=== PATIENT | male | born 1980 | race Caucasian/White ===

== ENCOUNTER 2018-09-09 14:01 | Emergency (ER) | payer BC ==
[~2018-09-09] VITALS: Ht 180.3 cm; Wt 117.9 kg
[~2018-09-09 14:01] MED LIST: ATEN25 PO; Cipro500 MG PO; Flagyl500 MG PO; HYDACE10B PO; HYDCHL25 PO; METO25ER PO
[2018-09-09] MEDS ORDERED: KETO10 PO (15:25)
[2018-09-09] MEDS ORDERED: LIDOCAINE1 EACH TOP (15:25)
[2018-09-09] MEDS ORDERED: PRED10 PO (15:41)
== END 2018-09-09 15:50 | disposition home or self-care (01) ==
LOC: ER 14:01
DX: M70.62 Trochanteric bursitis, left hip (principal); I10 Essential (primary) hypertension; F17.200 Nicotine dependence, unspecified, uncomplicated
CPT/HCPCS: 73502; 96372; 99283-25; J1885

== ENCOUNTER 2022-02-24 14:19 | Emergency (ER) | payer OTHER ==
[~2022-02-24] VITALS: Ht 177.8 cm; Wt 102.1 kg
[~2022-02-24 14:19] MED LIST changes: +KETO10 PO; +LIDOCAINE1 EACH TOP; +PRED10 PO
[2022-02-24] MEDS ORDERED: Neurontin 100100 MG PO (19:01)
[2022-02-24] MEDS ORDERED: METPRE4DP PO (19:01)
[2022-02-24] MEDS ORDERED: IBUP800 PO (19:01)
== END 2022-02-24 19:09 | disposition home or self-care (01) ==
LOC: ER 14:19
DX: M54.10 Radiculopathy, site unspecified (principal); I10 Essential (primary) hypertension; F17.200 Nicotine dependence, unspecified, uncomplicated; Z79.899 Other long term (current) drug therapy
CPT/HCPCS: 72131; 72193; 73502; A9270; J1170; J1885; J2405; Q9967

== ENCOUNTER 2023-04-21 11:03 | Emergency (ER) | payer OTHER ==
[~2023-04-21] VITALS: Ht 177.8 cm; Wt 98.0 kg
[~2023-04-21 11:03] MED LIST changes: +IBUP800 PO; +METPRE4DP PO; +Neurontin 100100 MG PO
[2023-04-21 11:15] VITALS: BP 157/100
[2023-04-21 11:54] LABS: BASOPHILS ABSOLUTE AUTO 0.06 K/mm3 (0.00-0.23); BASOPHILS PERCENT AUTO 1 % (0-2); EOSINOPHILS ABSOLUTE AUTO 0.15 K/mm3 (0.00-0.68); EOSINOPHILS PERCENT AUTO 2 % (0-6); Hematocrit 43.5 % (37.0-53.0); Hemoglobin 14.9 g/dL (13.5-17.5); IMMATURE GRAN ABSOLUTE AUTO 0.07 K/mm3 (0.00-0.10); IMMATURE GRAN PERCENT AUTO 1 % (0-1); LYMPHOCYTES ABSOLUTE AUTO 2.29 K/mm3 (0.84-5.20); LYMPHOCYTES PERCENT AUTO 24 % (21-46); MONOCYTES PERCENT AUTO 7 % (4-13); Mean Corpuscular HGB 30.7 pg (26.0-34.0); Mean Corpuscular HGB Conc 34.3 g/dL (31.5-36.5); Mean Corpuscular Volume 90 fL (80-100); Mean Platelet Volume 10.5 fL (9.1-12.4); NEUTROPHILS ABSOLUTE AUTO 6.26 K/mm3 (1.96-9.15); NEUTROPHILS PERCENT AUTO 66 % (41-73); Platelet Count 203 K/mm3 (150-400); RDW Coefficient Variation 12.4 % (11.7-14.2); RDW Standard Deviation 40.3 fL (35.1-46.3); Red Blood Cell Count 4.86 M/mm3 (4.30-5.90); White Blood Cell Count 9.53 K/mm3 (4.00-11.30)
[2023-04-21 12:15] LABS: Albumin, Blood 4.1 g/dL (3.4-5.0); Albumin/Globulin Ratio 1.2 (0.8-1.8); Bilirubin, Total 0.6 mg/dL (0.1-1.0); Bun/Creatinine Ratio 19.6 (12.0-20.0); Calcium, Blood 9.8 mg/dL (8.5-10.1); Creatinine, Blood 1.07 mg/dL (0.60-1.20); Globulin, Blood 3.5 g/dL (2.2-4.0); Magnesium, Blood 2.3 mg/dL (1.6-2.4); Phosphorus, Blood 3.1 mg/dL (2.5-4.9); Potassium, Blood 3.9 mmol/L (3.5-5.5); Total Protein, Blood 7.6 g/dL (6.4-8.2)
[2023-04-21] MEDS ORDERED: NS 1,000 ML IV SCH (14:30)
== END 2023-04-21 16:14 | disposition home or self-care (01) ==
LOC: ER 11:03
PROVIDERS: Physician Assistant
DX: R55 Syncope and collapse (principal); Z79.899 Other long term (current) drug therapy; Z79.52 Long term (current) use of systemic steroids; I10 Essential (primary) hypertension; F17.200 Nicotine dependence, unspecified, uncomplicated
CPT/HCPCS: 70450; 71046; 80053; 83735; 84100; 84484; 85025; J7030

== ENCOUNTER 2024-04-05 07:36 | Emergency (ER) | payer OTHER ==
[~2024-04-05] VITALS: Ht 177.8 cm; Wt 120.2 kg
[2024-04-05] MEDS ORDERED: CYMBALTA30 M2 PO (07:56)
[2024-04-05] MEDS ORDERED: LOSA50 PO (07:56)
[2024-04-05] MEDS ORDERED: Cyclobenzaprine5 MG PO (07:56)
[2024-04-05] MEDS ORDERED: DICL75ER PO (07:56)
[2024-04-05] MEDS ORDERED: BUPROPION XL150 M1 PO (07:56)
[2024-04-05] MEDS ORDERED: DEPO-TESTO200 MG/18 (07:57)
[2024-04-05] MEDS ORDERED: HYDROCODONE-AC1 EA19 PO (07:57)
[2024-04-05] MEDS ORDERED: NEURONTIN300 MG PO (07:57)
[2024-04-05] MEDS ORDERED: CHLO25B PO (07:57)
[2024-04-05] MEDS ORDERED: METOPROLOL SUCC25 MG PO (07:57)
[2024-04-05] MEDS ORDERED: Ketorolac Tromethamine 15mg Vial IM ONE (08:40)
[2024-04-05 10:15] VITALS: BP 138/86
== END 2024-04-05 10:19 | disposition home or self-care (01) ==
LOC: ER 07:36
DX: M15.4 Erosive (osteo)arthritis (principal); I10 Essential (primary) hypertension; Z79.899 Other long term (current) drug therapy
CPT/HCPCS: 73502; 96372; 99283-25; J1885

== ENCOUNTER 2025-01-28 14:36 | Inpatient (IN) | payer OTHER ==
[~2025-01-28] VITALS: Ht 177.8 cm; Wt 111.1 kg
[~2025-01-28 14:36] MED LIST changes: -GEMF600 PO; -INSULIN GL100 UNIT/1
[2025-01-28] MEDS ORDERED: Ondansetron HCl 2 MG / ML 2ML Vial IV ONE ×2 (15:05→19:35)
[2025-01-28] MEDS ORDERED: Morphine Sulfate 4 MG/1 ML Injection IV ONE ×3 (15:05→19:45)
[2025-01-28 16:01] LABS: Anion Gap 16.0 mmol/L (3-11); Aspartate Aminotrans (AST/SGOT 15.0 U/L (12-37); Blood Urea Nitrogen 15.0 mg/dL (8-24); CO2, Blood 20.0 mmol/L (21-32); Chloride, Blood 91.0 mmol/L (98-108); Creatinine, Blood 0.25 mg/dL (0.60-1.20); Glucose, Blood 387.0 mg/dL (70-99); Magnesium, Blood 2.4 mg/dL (1.6-2.4); Potassium, Blood 4.9 mmol/L (3.5-5.5); Sodium, Blood 122.0 mmol/L (136-145)
[2025-01-28 16:02] LABS: Alanine Aminotransfer (ALT/SGP 39.0 U/L (12-78); Albumin, Blood 4.1 g/dL (3.4-5.0); Albumin/Globulin Ratio 1.1 (0.8-1.8); Globulin, Blood 3.8 g/dL (2.2-4.0); Total Protein, Blood 7.9 g/dL (6.4-8.2)
[2025-01-28 16:03] LABS: Bilirubin, Total 0.8 mg/dL (0.1-1.0); Calcium, Blood 10.2 mg/dL (8.5-10.1)
[2025-01-28 16:17] LABS: BASOPHILS ABSOLUTE AUTO 0.09 K/mm3 (0.00-0.23); BASOPHILS PERCENT AUTO 1 % (0-2); EOSINOPHILS ABSOLUTE AUTO 0.05 K/mm3 (0.00-0.68); EOSINOPHILS PERCENT AUTO 0 % (0-6); IMMATURE GRAN ABSOLUTE AUTO 0.19 K/mm3 (0.00-0.10); IMMATURE GRAN PERCENT AUTO 1 % (0-1); LYMPHOCYTES ABSOLUTE AUTO 1.39 K/mm3 (0.84-5.20); LYMPHOCYTES PERCENT AUTO 8 % (21-46); MONOCYTES ABSOLUTE AUTO 1.18 K/mm3 (0.16-1.47); MONOCYTES PERCENT AUTO 7 % (4-13); NEUTROPHILS ABSOLUTE AUTO 14.47 K/mm3 (1.96-9.15); NEUTROPHILS PERCENT AUTO 83 % (41-73); NRBC ABSOLUTE 0.00 K/mm3 (0.00-0.02); NRBC Auto 0.0 /100 WBC (0.0-0.2); Platelet Count 273 K/mm3 (150-400); RDW Coefficient Variation 13.5 % (11.7-14.2); RDW Standard Deviation 39.3 fL (35.1-46.3)
[2025-01-28 17:07] LABS: Hematocrit 41.4 % (37.0-53.0); Hemoglobin 14.6 g/dL (13.5-17.5)
[2025-01-28 17:08] LABS: Mean Corpuscular Volume 84 fL (80-100)
[2025-01-28 17:09] LABS: Mean Corpuscular HGB Conc 35.3 g/dL (31.5-36.5)
[2025-01-28] MEDS ORDERED: NS 1,000 ML IV SCH (19:45)
[2025-01-28] MEDS ORDERED: Metoclopramide HCl 5MG / ML 2ML Vial IV PRN (21:05)
[2025-01-28] MEDS ORDERED: Ondansetron HCl 2 MG / ML 2ML Vial IV PRN (21:05)
[2025-01-28] MEDS ORDERED: Morphine Sulfate 4 MG/1 ML Injection IV PRN (21:10)
[2025-01-28] MEDS ORDERED: FLU VACC TS2025-26(6MOS UP)/PF 45 MCG/0.5 ML SYRINGE IM SCH (21:10)
[2025-01-28 21:46] LABS: Triglycerides 747 mg/dL (30-160)
[2025-01-28 21:56] LABS: Anion Gap 14.0 mmol/L (3-11); Blood Urea Nitrogen 12.0 mg/dL (8-24); CO2, Blood 22.0 mmol/L (21-32); Calcium, Blood 9.1 mg/dL (8.5-10.1); Chloride, Blood 96.0 mmol/L (98-108); Creatinine, Blood 0.54 mg/dL (0.60-1.20); Glucose, Blood 319.0 mg/dL (70-99); Potassium, Blood 3.9 mmol/L (3.5-5.5); Sodium, Blood 128.0 mmol/L (136-145)
[2025-01-28] MEDS ORDERED: Insulin Glargine-Yfgn 100 Unit/mL 3 ML SYR SC SCH (22:00)
[2025-01-28 23:38] VITALS: BP 143/89
--- NOTE | 2025-01-29 01:24 | NUR ---
Admission Note: Received from ED @ 0030 AOx4 speech clear & able to make all needs known; states mild abdom discomfort, relieved by MSO4 4 mg admin shortly @ ED blood glucose = 334 Glargine 25 U admin per standing order; Dr. Ferrer made aware of BG level, MD ordered to follow standard AC/HS sliding scale, although accuchecks are ordered q4H 2 U of Humalog admin per sliding scale. LR @ 200 srtarted & infusing well via LAC. Pt ambulates steadily and independently. He is stable, in good spirits and is resting comfortably @ this time.
[2025-01-29 04:35] VITALS: BP 148/82
[2025-01-29 07:10] VITALS: BP 148/85
[2025-01-29 07:48] LABS: Anion Gap 18.0 mmol/L (3-11); Blood Urea Nitrogen 12.0 mg/dL (8-24); CO2, Blood 16.0 mmol/L (21-32); Calcium, Blood 9.2 mg/dL (8.5-10.1); Chloride, Blood 103.0 mmol/L (98-108); Creatinine, Blood 0.7 mg/dL (0.60-1.20); Glucose, Blood 296.0 mg/dL (70-99); Potassium, Blood 4.3 mmol/L (3.5-5.5); Sodium, Blood 133.0 mmol/L (136-145)
[2025-01-29] MEDS ORDERED: INSULIN GL100 UNIT/1 (08:35)
[2025-01-29] MEDS ORDERED: Enoxaparin 40 MG/0.4 ML SYR SC SCH (09:00)
[2025-01-29 11:16] VITALS: BP 142/83
[2025-01-29] MEDS ORDERED: Insulin Glargine-Yfgn 100 Unit/mL 3 ML SYR SC ONE (13:00)
--- NOTE | 2025-01-29 17:04 | NUR ---
SHIFT SUMMARY: PATIENT A/OX4, PLEASANT AND COOPERATIVE c CARE. PATIENT MEDICATED FOR MID ABDOMINAL PAIN PER EMAR c GOOD EFFECT. PATIENT IS NPO, BUT CAN HAVE ICE CHIPS/SIPS OF H2O PER ORDER. PATIENT DENIES N/V, CP/PRESSURE, SOB AND DIZZINESS. PATIENT ON TELE, ST HR IN 110'S BPM. PATIENT BLOOD SUGAR HAS BEEN IN MID TO HIGH 200'S RANGES THIS SHIFT, MEDICATED c INSULIN PER ORDER. DR. JACOBS IS AWARE AND MADE SOME CHANGES c INSULIN (SEE EMAR). PATIENT IS CONTINENT OF BLADDER, AMBULATES TO BATHROOM INDEPENDENTLY. PATIENT HAS PIV TO R FOREARM INFUSING LR AT 200 MLS/HR. PATIENT HAS HAD NO COMPLAINTS OR DENIES NEW CONCERN THIS SHIFT. VITAL SIGNS REVIEWED. BED IN LOWEST POSITION. CALL LIGHT IN REACH.
[2025-01-29] MEDS ORDERED: Insulin Human Lispro 100 Units/ML 3ML Syringe SC SCH ×2 (18:00)
[2025-01-29 19:06] LABS: BASOPHILS ABSOLUTE AUTO 0.05 K/mm3 (0.00-0.23); BASOPHILS PERCENT AUTO 1 % (0-2); EOSINOPHILS ABSOLUTE AUTO 0.01 K/mm3 (0.00-0.68); EOSINOPHILS PERCENT AUTO 0 % (0-6); Hematocrit 40.7 % (37.0-53.0); Hemoglobin 14.2 g/dL (13.5-17.5); IMMATURE GRAN ABSOLUTE AUTO 0.04 K/mm3 (0.00-0.10); IMMATURE GRAN PERCENT AUTO 0 % (0-1); LYMPHOCYTES ABSOLUTE AUTO 1.02 K/mm3 (0.84-5.20); LYMPHOCYTES PERCENT AUTO 11 % (21-46); MONOCYTES ABSOLUTE AUTO 0.73 K/mm3 (0.16-1.47); MONOCYTES PERCENT AUTO 8 % (4-13); Mean Corpuscular HGB Conc 34.9 g/dL (31.5-36.5); Mean Corpuscular Volume 84 fL (80-100); NEUTROPHILS ABSOLUTE AUTO 7.52 K/mm3 (1.96-9.15); NEUTROPHILS PERCENT AUTO 80 % (41-73); NRBC ABSOLUTE 0.00 K/mm3 (0.00-0.02); NRBC Auto 0.0 /100 WBC (0.0-0.2); Platelet Count 169 K/mm3 (150-400); RDW Coefficient Variation 13.9 % (11.7-14.2); RDW Standard Deviation 41.9 fL (35.1-46.3)
[2025-01-29 19:24] LABS: Magnesium, Blood 1.9 mg/dL (1.6-2.4)
[2025-01-29 19:47] VITALS: BP 147/73
[2025-01-29 19:48] LABS: Alanine Aminotransfer (ALT/SGP 33.0 U/L (12-78); Albumin, Blood 2.7 g/dL (3.4-5.0); Albumin/Globulin Ratio 0.7 (0.8-1.8); Anion Gap 13.0 mmol/L (3-11); Aspartate Aminotrans (AST/SGOT 35.0 U/L (12-37); Bilirubin, Total 1.1 mg/dL (0.1-1.0); Blood Urea Nitrogen 12.0 mg/dL (8-24); CO2, Blood 21.0 mmol/L (21-32); Calcium, Blood 8.6 mg/dL (8.5-10.1); Chloride, Blood 100.0 mmol/L (98-108); Creatinine, Blood 0.93 mg/dL (0.60-1.20); Globulin, Blood 3.9 g/dL (2.2-4.0); Glucose, Blood 309.0 mg/dL (70-99); Phosphorus, Blood 1.2 mg/dL (2.5-4.9); Potassium, Blood 3.9 mmol/L (3.5-5.5); Sodium, Blood 130.0 mmol/L (136-145); Total Protein, Blood 6.6 g/dL (6.4-8.2)
[2025-01-29] MEDS ORDERED: Insulin Glargine-Yfgn 100 Unit/mL 3 ML SYR SC SCH (21:00)
[2025-01-30 00:25] VITALS: BP 126/68
[2025-01-30 04:19] VITALS: BP 132/69
--- NOTE | 2025-01-30 04:53 | NUR ---
Shift Summary: Pt. AOx4 resp clear & non-labored all VS WNL, c/o intermittent abdominal pains relieved by MSO4 4 mg administered PRN as ordered, blood sugar levels remain in the higher side, pt. medicated with Humalog as per sliding scale protocol; no acute S/S distress in r/t high BG levels noted. IVF infusing well via RFA, pt. ambulating independently to bathroom, continent of (B) B&B. Pt. is stable & resting with call cabrales in reach.
[2025-01-30] MEDS ORDERED: OxyCODONE 10/Acetamin 325 TABLET PO PRN (05:15)
[2025-01-30 07:19] VITALS: BP 120/63
[2025-01-30] MEDS ORDERED: Insulin Glargine-Yfgn 100 Unit/mL 3 ML SYR SC SCH (09:00)
[2025-01-30 10:39] LABS: BASOPHILS ABSOLUTE AUTO 0.04 K/mm3 (0.00-0.23); BASOPHILS PERCENT AUTO 0 % (0-2); EOSINOPHILS ABSOLUTE AUTO 0.02 K/mm3 (0.00-0.68); EOSINOPHILS PERCENT AUTO 0 % (0-6); Hematocrit 36.0 % (37.0-53.0); Hemoglobin 12.1 g/dL (13.5-17.5); IMMATURE GRAN ABSOLUTE AUTO 0.05 K/mm3 (0.00-0.10); IMMATURE GRAN PERCENT AUTO 1 % (0-1); LYMPHOCYTES ABSOLUTE AUTO 0.99 K/mm3 (0.84-5.20); LYMPHOCYTES PERCENT AUTO 11 % (21-46); MONOCYTES ABSOLUTE AUTO 0.93 K/mm3 (0.16-1.47); MONOCYTES PERCENT AUTO 10 % (4-13); Mean Corpuscular HGB Conc 33.6 g/dL (31.5-36.5); Mean Corpuscular Volume 85 fL (80-100); NEUTROPHILS ABSOLUTE AUTO 7.35 K/mm3 (1.96-9.15); NEUTROPHILS PERCENT AUTO 78 % (41-73); NRBC ABSOLUTE 0.00 K/mm3 (0.00-0.02); NRBC Auto 0.0 /100 WBC (0.0-0.2); Platelet Count 162 K/mm3 (150-400); RDW Coefficient Variation 13.7 % (11.7-14.2); RDW Standard Deviation 42.4 fL (35.1-46.3)
[2025-01-30 11:05] LABS: Alanine Aminotransfer (ALT/SGP 21 U/L (12-78); Albumin, Blood 2.3 g/dL (3.4-5.0); Albumin/Globulin Ratio 0.6 (0.8-1.8); Anion Gap 9 mmol/L (3-11); Aspartate Aminotrans (AST/SGOT 17 U/L (12-37); Bilirubin, Total 0.7 mg/dL (0.1-1.0); Blood Urea Nitrogen 23 mg/dL (8-24); C-REACTIVE PROTEIN, EXT RANGE >19.000 mg/dL (0.000-0.300); CO2, Blood 23 mmol/L (21-32); Calcium, Blood 8.9 mg/dL (8.5-10.1); Chloride, Blood 102 mmol/L (98-108); Creatinine, Blood 2.06 mg/dL (0.60-1.20); Globulin, Blood 3.7 g/dL (2.2-4.0); Glucose, Blood 286 mg/dL (70-99); Magnesium, Blood 1.9 mg/dL (1.6-2.4); Phosphorus, Blood 1.5 mg/dL (2.5-4.9); Potassium, Blood 3.3 mmol/L (3.5-5.5); Sodium, Blood 131 mmol/L (136-145); Total Protein, Blood 6.0 g/dL (6.4-8.2)
[2025-01-30 11:42] VITALS: BP 131/75
[2025-01-30] MEDS ORDERED: NS 1,000 ML IV SCH (12:35)
[2025-01-30] MEDS ORDERED: Potassium Phosphate Dibasic 10 MM in Dextrose 5% 250 ML IV STA (12:40)
[2025-01-30] MEDS ORDERED: Sodium Phosphate 10 MM in Dextrose 5% 250 ML IV ONE (12:50)
--- NOTE | 2025-01-30 12:50 | NUR ---
NEPHROLOGY CONSULT NOTE: CALL DR PATTON FOR CONSULT RECEIVED TELEPHONE ORDER ORDERS RECEIVED FOR RENAL PANEL, MAGNESIUM LAB DRAW AND SODIUM PHOSPHATE IV NOW.
[2025-01-30] MEDS ORDERED: Darbepoetin (Pharmacy Consult) SC SCH (13:00)
[2025-01-30 13:36] LABS: Source, Urine Clean Catch
[2025-01-30 13:42] LABS: Bilirubin, Urine Neg (Neg); Color, Urine Yellow (P-Yellow); Glucose Qualitative, Urine 4+ (Neg); Ketones, Urine 2+ (Neg); Leukocyte Esterase, Urine Neg (Neg); Protein, Urine 3+ (Neg); Specific Gravity, Urine 1.020 (1.003-1.022); Urobilinogen, Urine NORM (Normal)
[2025-01-30 14:02] LABS: White Blood Cells, Urine 0-2 /hpf (0-5)
[2025-01-30 14:35] LABS: Albumin, Blood 2.5 g/dL (3.4-5.0); Anion Gap 11 mmol/L (3-11); Blood Urea Nitrogen 25 mg/dL (8-24); CO2, Blood 21 mmol/L (21-32); Calcium, Blood 8.7 mg/dL (8.5-10.1); Chloride, Blood 102 mmol/L (98-108); Creatinine, Blood 2.22 mg/dL (0.60-1.20); Glucose, Blood 264 mg/dL (70-99); Magnesium, Blood 1.9 mg/dL (1.6-2.4); Phosphorus, Blood 1.5 mg/dL (2.5-4.9); Potassium, Blood 3.3 mmol/L (3.5-5.5)
[2025-01-30 14:49] LABS: EOS, Urine 0.0 % (0.0-1.0); Eosinophils-Raw #,Urine 0; White Blood Cells Urine 0-2 /hpf (0-5)
[2025-01-30 15:14] VITALS: BP 142/82
[2025-01-30 15:58] LABS: Sodium, Blood 131 mmol/L (136-145)
[2025-01-30] MEDS ORDERED: Potassium Phosphate Dibasic 20 MM in Dextrose 5% 500 ML IV ONE (16:00)
[2025-01-30] MEDS ORDERED: Insulin Human Lispro 100 Units/ML 3ML Syringe SC SCH (16:30)
--- NOTE | 2025-01-30 16:30 | NUR ---
PT ALERT AND ORIENTED X4, INDEPENDENT IN ROOM, C/O SLIGHT ABDOMINAL PAIN IN AM BUT DENIED NAUSEA. ABDOMINAL PAIN TOLERABLE AND PO PAIN MEDS PRN, ADVANCED TO CLEAR LIQUID DIET-TOLERATING WELL. CONTINUOUS IVF INFUSING. PLAN TO KEEP PT ON CLEARS TODAY AND MAYBE TOMMOROW WELL. CALL LIGHT IN REACH, PURPOSEFUL HOURLY ROUNDING.
[2025-01-30 16:57] LABS: Phosphorus, Blood 2.2 mg/dL (2.5-4.9); Potassium, Blood 3.4 mmol/L (3.5-5.5); Sodium, Blood 130.0 mmol/L (136-145)
[2025-01-30] MEDS ORDERED: Potassium Phosphate Dibasic 10 MM in Dextrose 5% 250 ML IV ONE (17:15)
--- NOTE | 2025-01-30 17:16 | NUR ---
NEPHROLOGY NOTIFICATION NOTE: NOTIFIED DR. ABDI batista LAB RESULT FOR SODIUM, POTASSIUM AND PHOSPHOROUS, RECEIVED TO TO GIVE POTASSIUM PHOS 10 MM0 IV NOW.
[2025-01-30 19:20] VITALS: BP 115/81
[2025-01-31] VITALS (7 sets, daily range): BP systolic 114–134; BP diastolic 76–89
--- NOTE | 2025-01-31 04:18 | NUR ---
SHIFT SUMMARY PATIENT HAD NO ACUTE CHANGES. DENIES CHEST PAIN, SOB, AND N/V. VSS/AFEBRILE. PIV INTACT. NS INFUSING @ 125 mL/HR. TELE MONITOR ST 104. CBG 309. REPORTED ABDOMEN PAIN AND OXYCODONE 10/325 MG GIVEN PER EMAR. 24 HOUR URINE COLLECTION STARTED 01/30/25 @ 23:00. SLEPT ON/OFF. ICE PACK PROVIDED. CALL LIGHT IN REACH. BED IN LOWEST POSITION. WILL CONTINUE TO MONITOR UNTIL DAY SHIFT NURSE ASSUMES CARE.
[2025-01-31 06:16] LABS: BASOPHILS ABSOLUTE AUTO 0.04 K/mm3 (0.00-0.23); BASOPHILS PERCENT AUTO 0 % (0-2); EOSINOPHILS ABSOLUTE AUTO 0.11 K/mm3 (0.00-0.68); EOSINOPHILS PERCENT AUTO 1 % (0-6); Hematocrit 37.0 % (37.0-53.0); Hemoglobin 12.0 g/dL (13.5-17.5); IMMATURE GRAN ABSOLUTE AUTO 0.06 K/mm3 (0.00-0.10); IMMATURE GRAN PERCENT AUTO 1 % (0-1); LYMPHOCYTES ABSOLUTE AUTO 1.25 K/mm3 (0.84-5.20); LYMPHOCYTES PERCENT AUTO 13 % (21-46); MONOCYTES ABSOLUTE AUTO 0.95 K/mm3 (0.16-1.47); MONOCYTES PERCENT AUTO 10 % (4-13); Mean Corpuscular HGB Conc 32.4 g/dL (31.5-36.5); Mean Corpuscular Volume 87 fL (80-100); NEUTROPHILS ABSOLUTE AUTO 7.23 K/mm3 (1.96-9.15); NEUTROPHILS PERCENT AUTO 75 % (41-73); NRBC ABSOLUTE 0.00 K/mm3 (0.00-0.02); NRBC Auto 0.0 /100 WBC (0.0-0.2); Platelet Count 193 K/mm3 (150-400); RDW Coefficient Variation 13.9 % (11.7-14.2); RDW Standard Deviation 44.2 fL (35.1-46.3)
[2025-01-31 06:56] LABS: Magnesium, Blood 2.0 mg/dL (1.6-2.4)
[2025-01-31 06:59] LABS: Alanine Aminotransfer (ALT/SGP 23 U/L (12-78); Albumin, Blood 2.6 g/dL (3.4-5.0); Albumin/Globulin Ratio 0.6 (0.8-1.8); Anion Gap 9 mmol/L (3-11); Aspartate Aminotrans (AST/SGOT 21 U/L (12-37); Bilirubin, Total 0.6 mg/dL (0.1-1.0); Blood Urea Nitrogen 26 mg/dL (8-24); C-REACTIVE PROTEIN, EXT RANGE >19.000 mg/dL (0.000-0.300); CO2, Blood 24 mmol/L (21-32); Calcium, Blood 9.1 mg/dL (8.5-10.1); Chloride, Blood 100 mmol/L (98-108); Creatinine, Blood 2.56 mg/dL (0.60-1.20); Globulin, Blood 4.2 g/dL (2.2-4.0); Glucose, Blood 187 mg/dL (70-99); Phosphorus, Blood 2.3 mg/dL (2.5-4.9); Potassium, Blood 2.8 mmol/L (3.5-5.5); Sodium, Blood 130 mmol/L (136-145); Total Protein, Blood 6.8 g/dL (6.4-8.2)
[2025-01-31] MEDS ORDERED: Potassium Chl 20MEQ/Water100ML 100 ML IV STA (07:17)
[2025-01-31] MEDS ORDERED: NS 1,000 ML IV SCH (07:25)
[2025-01-31] MEDS ORDERED: Potassium Phosphate Dibasic 20 MM in Dextrose 5% 500 ML IV SCH (09:30)
[2025-01-31 12:25] LABS: Magnesium, Blood 2.0 mg/dL (1.6-2.4); Potassium, Blood 3.3 mmol/L (3.5-5.5)
[2025-01-31] MEDS ORDERED: Potassium Chl 20MEQ/Water100ML 100 ML IV ONE (13:30)
--- NOTE | 2025-01-31 15:43 | NUR ---
LATE ENTRY FOR DIABETIC EDUCATION WAS INSTRUCTED ON USE OF CORRECTION SCALE PRIOR TO MEALS, WHAT KINDS OF INSULIN USED FOR CORRECTION SCALE AND WHEN TO GIVE PRIOR TO EATING MEAL. PT DEMONSTRATED COMPETANCY IN DIALING UP INSULIN AND INJECTION HIMSELF. REQUIRED EDUCATION IN PRIMING THE NEEDLE ONCE ITS PLACED, WHICH PT REPORTS HE WASN'T AWARE OF DURING THE TIME HE HAD BEEN GIVING HIMSELF LONG ACTING INSULIN AT HOME. NOTIFIED PRIMARY NURSE AFTER RETURN FROM BREAK.
--- NOTE | 2025-01-31 17:54 | NUR ---
PT ALERT AND ORIENTED X4, INDEPENDENT IN ROOM, IVF INFUSING-NS AT 75CC/HR, BLOOD GLUCOSE IN 200'S, 24 HR URINE COLLECTION ONGOING. TOLERATING CLEAR DIET- ABDOMINAL PAIN MANAGED WITH PO AND IV PRN, ZOFRAN ONE DOSE GIVEN TODAY. PLAN FOR DIET ADVANCEMENT TOMMOROW TO FULL LIQUID DIET, PT EDUCATION PROVIDED ON INSULIN ADMINISTRATION-PT DEMOSTRATED INSULIN PEN USE AND ADMINISTRATION. CALL LIGHT IN REACH.
[2025-01-31] MEDS ORDERED: Insulin Glargine-Yfgn 100 Unit/mL 3 ML SYR SC SCH (21:00)
[2025-01-31 23:31] LABS: Protein, Urine Quantitative 106.2 mg/dL (0.0-11.9)
[2025-02-01 03:29] VITALS: BP 145/87
[2025-02-01 05:36] LABS: BASOPHILS ABSOLUTE AUTO 0.03 K/mm3 (0.00-0.23); BASOPHILS PERCENT AUTO 0 % (0-2); EOSINOPHILS ABSOLUTE AUTO 0.20 K/mm3 (0.00-0.68); EOSINOPHILS PERCENT AUTO 2 % (0-6); Hematocrit 33.2 % (37.0-53.0); Hemoglobin 10.9 g/dL (13.5-17.5); IMMATURE GRAN ABSOLUTE AUTO 0.08 K/mm3 (0.00-0.10); IMMATURE GRAN PERCENT AUTO 1 % (0-1); LYMPHOCYTES ABSOLUTE AUTO 1.43 K/mm3 (0.84-5.20); LYMPHOCYTES PERCENT AUTO 15 % (21-46); MONOCYTES ABSOLUTE AUTO 0.89 K/mm3 (0.16-1.47); MONOCYTES PERCENT AUTO 10 % (4-13); Mean Corpuscular HGB Conc 32.8 g/dL (31.5-36.5); Mean Corpuscular Volume 88 fL (80-100); NEUTROPHILS ABSOLUTE AUTO 6.78 K/mm3 (1.96-9.15); NEUTROPHILS PERCENT AUTO 72 % (41-73); NRBC ABSOLUTE 0.00 K/mm3 (0.00-0.02); NRBC Auto 0.0 /100 WBC (0.0-0.2); Platelet Count 193 K/mm3 (150-400); RDW Coefficient Variation 13.9 % (11.7-14.2); RDW Standard Deviation 44.6 fL (35.1-46.3)
--- NOTE | 2025-02-01 06:16 | NUR ---
SHIFT SUMMARY PT A&OX4 AND ANSWERS QUESTIONS APPROPRIATELY. PT RECEIVING IV POTASSIUM AT BEGINNING OF SHIFT. PT RECEIVED SCHEDULED AND PRN MEDICATIONS WITH NO ADVERSE EFFECTS. VSS, NO COMPLAINTS OF CP/PRESSURE OR SOB. PT SPENT MOST OF THE SHIFT IN BEDD WITH EYES CLOSED AND RESPIRATIONS EVEN AND UNLABORED. NO ACUTE EVENTS AT THIS TIME. PT LEFT IN A POSITION OF SAFETY WITH FALL PRECAUTIONS IN PLACE AND CALL LIGHT IN REACH.
[2025-02-01 06:42] LABS: Alanine Aminotransfer (ALT/SGP 25.0 U/L (12-78); Albumin, Blood 2.4 g/dL (3.4-5.0); Albumin/Globulin Ratio 0.6 (0.8-1.8); Anion Gap 9.0 mmol/L (3-11); Aspartate Aminotrans (AST/SGOT 25.0 U/L (12-37); Bilirubin, Total 0.5 mg/dL (0.1-1.0); Blood Urea Nitrogen 26.0 mg/dL (8-24); CO2, Blood 23.0 mmol/L (21-32); Calcium, Blood 9.3 mg/dL (8.5-10.1); Chloride, Blood 105.0 mmol/L (98-108); Creatinine, Blood 2.62 mg/dL (0.60-1.20); Globulin, Blood 3.7 g/dL (2.2-4.0); Glucose, Blood 135.0 mg/dL (70-99); Magnesium, Blood 2.1 mg/dL (1.6-2.4); Phosphorus, Blood 3.3 mg/dL (2.5-4.9); Potassium, Blood 3.5 mmol/L (3.5-5.5); Sodium, Blood 133.0 mmol/L (136-145); Total Protein, Blood 6.1 g/dL (6.4-8.2)
[2025-02-01] MEDS ORDERED: NS 1,000 ML IV SCH (07:00)
[2025-02-01 07:30] VITALS: BP 126/78
[2025-02-01 11:08] VITALS: BP 153/73
[2025-02-01 15:04] VITALS: BP 123/78
--- NOTE | 2025-02-01 16:25 | NUR ---
SHIFT SUMMARY PT DIET ADVANCED TO FULL LIQUID. TOLERATING WELL SO FAR. DR. PATTON FOLLOWING. MEDICATED PER EMAR ONCE THIS SHIFT SO FAR. NO IV PAIN MEDS NEEDED SO FAR THIS SHIFT. TELE IN PLACE. RUNNING NSR T/O SHIFT. NO OTHER ACUTE CHANGES IN ASSESSMENT AT THIS TIME. VS REVIEWED. CALL LIGHT IN REACH. DENIES OTHER NEEDS AT THIS TIME. PT REPORTED HE HAD TWO BMS YESTERDAY AND FORGOT TO TELL STAFF.
[2025-02-01 20:11] VITALS: BP 152/90
[2025-02-02 00:10] VITALS: BP 139/81
[2025-02-02 04:03] VITALS: BP 137/80
[2025-02-02 05:58] LABS: BASOPHILS ABSOLUTE AUTO 0.04 K/mm3 (0.00-0.23); BASOPHILS PERCENT AUTO 1 % (0-2); EOSINOPHILS ABSOLUTE AUTO 0.17 K/mm3 (0.00-0.68); EOSINOPHILS PERCENT AUTO 2 % (0-6); Hematocrit 33.3 % (37.0-53.0); Hemoglobin 10.8 g/dL (13.5-17.5); IMMATURE GRAN ABSOLUTE AUTO 0.12 K/mm3 (0.00-0.10); IMMATURE GRAN PERCENT AUTO 1 % (0-1); LYMPHOCYTES ABSOLUTE AUTO 1.05 K/mm3 (0.84-5.20); LYMPHOCYTES PERCENT AUTO 12 % (21-46); MONOCYTES ABSOLUTE AUTO 0.81 K/mm3 (0.16-1.47); MONOCYTES PERCENT AUTO 10 % (4-13); Mean Corpuscular HGB Conc 32.4 g/dL (31.5-36.5); Mean Corpuscular Volume 87 fL (80-100); NEUTROPHILS ABSOLUTE AUTO 6.38 K/mm3 (1.96-9.15); NEUTROPHILS PERCENT AUTO 74 % (41-73); NRBC ABSOLUTE 0.00 K/mm3 (0.00-0.02); NRBC Auto 0.0 /100 WBC (0.0-0.2); Platelet Count 206 K/mm3 (150-400); RDW Coefficient Variation 13.7 % (11.7-14.2); RDW Standard Deviation 43.3 fL (35.1-46.3)
--- NOTE | 2025-02-02 06:03 | NUR ---
SHIFT SUMMARY PT A&OX4 AND ANSWERS QUESTIONS APPROPRIATELY. DIET ADVANCED TO SOFT FOODS DURING DAY SHIFT, PT STILL ABLE TO TOLERATE MINIMAL PO INTAKE. VSS, NO COMPLAINTS OF CP/PRESSURE OR SOB. PT MEDICATED PER EMAR SCHEDULED AND PRN. PT INDEPENDENT TO THE BR. NO ACUTE EVENTS AT THIS TIME. PT SPENT MOST OF SHIFT IN BED WITH EYES CLOSED AND RESPIRATIONS EVEN AND UNLABORED. FALL PRECAUTIONS IN PLACE AND CALL LIGHT IN REACH.
[2025-02-02 06:29] LABS: Alanine Aminotransfer (ALT/SGP 23.0 U/L (12-78); Albumin, Blood 2.1 g/dL (3.4-5.0); Albumin/Globulin Ratio 0.6 (0.8-1.8); Anion Gap 11.0 mmol/L (3-11); Aspartate Aminotrans (AST/SGOT 13.0 U/L (12-37); Bilirubin, Total 0.6 mg/dL (0.1-1.0); Blood Urea Nitrogen 29.0 mg/dL (8-24); CO2, Blood 20.0 mmol/L (21-32); Calcium, Blood 9.6 mg/dL (8.5-10.1); Chloride, Blood 106.0 mmol/L (98-108); Creatinine, Blood 2.28 mg/dL (0.60-1.20); Globulin, Blood 3.8 g/dL (2.2-4.0); Glucose, Blood 192.0 mg/dL (70-99); Magnesium, Blood 2.1 mg/dL (1.6-2.4); Phosphorus, Blood 3.9 mg/dL (2.5-4.9); Potassium, Blood 3.2 mmol/L (3.5-5.5); Sodium, Blood 134.0 mmol/L (136-145); Total Protein, Blood 5.9 g/dL (6.4-8.2)
[2025-02-02 07:44] VITALS: BP 144/90
[2025-02-02 07:45] VITALS: BP 144/90
[2025-02-02 07:46] VITALS: BP 144/90
[2025-02-02] MEDS ORDERED: Potassium Chloride 10 Meq Tablet SA PO ONE (08:00)
[2025-02-02 11:30] VITALS: BP 133/81
[2025-02-02] MEDS ORDERED: GEMF600 PO (16:42)
--- NOTE | 2025-02-02 17:46 | NUR ---
SHIFT SUMMARY/DISCHARGE 1700 PT AOX4, COOPERATIVE, ABLE TO MAKE NEEDS KNOWN. PT IS IND IN ROOM, ON ROOM AIR, TOLERATING MEDICATIONS. LITTLE C/O OF PAIN THIS AM, MEDICATED PER EMAR. 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 PT DC'D WITH HARD SCRIPT AND NOTE FOR WORK. PT OPTED TO AMBULATE OUT OF HOSPITAL.
== END 2025-02-02 17:02 | disposition home or self-care (01) | DRG 438 ==
LOC: ER 14:36 → ERHOLD 14:37 → MEDS 14:37
PROVIDERS: Emergency Medicine; Family Medicine; Hospitalist; Internal Medicine Nephrology; Nurse Practitioner Acute Care; ADMIT Internal Medicine
DX: K85.80 Other acute pancreatitis without necrosis or infection (principal); E13.10 Other specified diabetes mellitus with ketoacidosis without coma; N17.9 Acute kidney failure, unspecified; E87.1 Hypo-osmolality and hyponatremia; M87.9 Osteonecrosis, unspecified; E78.1 Pure hyperglyceridemia; E87.6 Hypokalemia; E83.39 Other disorders of phosphorus metabolism; I10 Essential (primary) hypertension; F17.200 Nicotine dependence, unspecified, uncomplicated; G47.33 Obstructive sleep apnea (adult) (pediatric); E86.0 Dehydration; E86.1 Hypovolemia; E83.52 Hypercalcemia; R16.2 Hepatomegaly with splenomegaly, not elsewhere classified; K80.20 Calculus of gallbladder without cholecystitis without obstruction; D64.9 Anemia, unspecified; Z88.8 Allergy status to other drugs, medicaments and biological substances; Z79.82 Long term (current) use of aspirin; Z79.4 Long term (current) use of insulin; Z79.891 Long term (current) use of opiate analgesic
CPT/HCPCS: 36415; 74177; 80048; 80053; 80069; 81001; 82010; 82436; 82947; 83605; 83690; 83735; 84100; 84132; 84156; 84295; 84300; 84478; 84484; 85025; 86140; 87205; 93005; 93010; 96361; 96374; 96375; 96376; 99285-25; A9270; G0378; J1650; J1815; J2270; J2405; J3480; J7030; J7060; J7120; Q9967

== ENCOUNTER → 2025-01-28 | Outpatient (CLI) | payer OTHER ==
[~2025-01-28] MED LIST changes: +ASPIR 8181 M1 PO; +BUPROPION XL150 M1 PO; +CHLO25B PO; +CYMBALTA30 M2 PO; +Cyclobenzaprine5 MG PO; +DEPO-TESTO200 MG/18 INJ; +DICL75ER PO; +GEMF600 PO; +HYDROCODONE-AC1 EA19 PO; +INSULIN GL100 UNIT/1; +LOSA50 PO; +METOPROLOL SUCC25 MG PO; +MULTI-VITAMIN1 EAC2 PO; +NEURONTIN300 MG PO; +OXYC5 PO; +THERA-D2000 UNIT PO
[2025-01-28 15:53] LABS: BASOPHILS ABSOLUTE AUTO 0.06 K/mm3 (0.00-0.23); BASOPHILS PERCENT AUTO 0 % (0-2); EOSINOPHILS ABSOLUTE AUTO 0.06 K/mm3 (0.00-0.68); EOSINOPHILS PERCENT AUTO 0 % (0-6); IMMATURE GRAN ABSOLUTE AUTO 0.15 K/mm3 (0.00-0.10); IMMATURE GRAN PERCENT AUTO 1 % (0-1); LYMPHOCYTES ABSOLUTE AUTO 1.22 K/mm3 (0.84-5.20); LYMPHOCYTES PERCENT AUTO 7 % (21-46); MONOCYTES ABSOLUTE AUTO 1.20 K/mm3 (0.16-1.47); MONOCYTES PERCENT AUTO 7 % (4-13); NEUTROPHILS ABSOLUTE AUTO 13.95 K/mm3 (1.96-9.15); NEUTROPHILS PERCENT AUTO 84 % (41-73); NRBC ABSOLUTE 0.00 K/mm3 (0.00-0.02); NRBC Auto 0.0 /100 WBC (0.0-0.2); Platelet Count 248 K/mm3 (150-400); RDW Coefficient Variation 13.2 % (11.7-14.2); RDW Standard Deviation 39.1 fL (35.1-46.3)
[2025-01-28 16:34] LABS: Anion Gap 15.0 mmol/L (3-11); CO2, Blood 23.0 mmol/L (21-32); Chloride, Blood 89.0 mmol/L (98-108); Creatinine, Blood 0.45 mg/dL (0.60-1.20); Glucose, Blood 387.0 mg/dL (70-99); Magnesium, Blood 2.0 mg/dL (1.6-2.4); Potassium, Blood 3.4 mmol/L (3.5-5.5); Sodium, Blood 124.0 mmol/L (136-145)
[2025-01-28 16:46] LABS: Hematocrit 44.8 % (37.0-53.0); Hemoglobin 15.8 g/dL (13.5-17.5); Mean Corpuscular Volume 84 fL (80-100)
[2025-01-28 16:47] LABS: Mean Corpuscular HGB Conc 35.3 g/dL (31.5-36.5)
[2025-01-28 16:51] LABS: Aspartate Aminotrans (AST/SGOT 68.0 U/L (12-37)
[2025-01-28 16:52] LABS: Albumin, Blood 3.8 g/dL (3.4-5.0); Bilirubin, Total 1.1 mg/dL (0.1-1.0); Blood Urea Nitrogen 15.0 mg/dL (8-24); Calcium, Blood 10.2 mg/dL (8.5-10.1)
[2025-01-28 16:53] LABS: Albumin/Globulin Ratio 0.8 (0.8-1.8); Globulin, Blood 4.5 g/dL (2.2-4.0); Total Protein, Blood 8.3 g/dL (6.4-8.2)
[2025-01-28 16:59] LABS: Alanine Aminotransfer (ALT/SGP 39.0 U/L (12-78)
== END ==
LOC: LAB 14:02 → LAB SHORT 14:02
PROVIDERS: Chiropractor
DX: R07.89 Other chest pain (principal); R10.13 Epigastric pain
CPT/HCPCS: 80053; 83690; 83735; 84484; 85025; 85379